=== PATIENT | male | born 1965 | race Caucasian/White ===

== ENCOUNTER 2017-08-11 23:57 | Inpatient (IN) | payer OTHER ==
[~2017-08-11] VITALS: Ht 185.4 cm; Wt 85.9 kg
[2017-08-12] MEDS ORDERED: VANCOMYCIN HCL 1 GM in NS 250ML 250 ML IV STA (00:10)
[2017-08-12] MEDS ORDERED: VANCOMYCIN HCL 1 GM ONE (00:32)
[2017-08-12] MEDS ORDERED: NS 250ML 250 ML IV ONE (00:32)
--- NOTE | 2017-08-12 00:33 | NUR ---
BLOOD CULTURES DRAWN X2 PER [facility] IN LAB
[2017-08-12 00:34] LABS: BASOPHIL % 0.2 % (0.0-0.2); EOSINOPHIL % 0.3 % (0.0-5.0); HEMOGLOBIN 14.5 g/dL (13.9-16.3); LYMPHOCYTES # 0.9 10^3/uL (1.0-4.8); LYMPHOCYTES % 7.3 % (24.0-44.0); MEAN CELL HGB 30.9 pg (26-34); MEAN CELL HGB CONCENTRATION 34.2 g/dL (33-37); MEAN CORP VOLUME 90.2 fL (78-100); MEAN PLATELET VOLUME 8.2 fL (7.8-11.0); MONOCYTES # 0.8 10^3/uL (0.3-0.8); MONOCYTES % 6.9 % (5.0-12.0); RED CELL DISTRIBUTION WIDTH 13.5 % (11.5-14.5); WHITE BLOOD CELL 11.8 10^3/uL (4.5-11.0)
[2017-08-12 01:00] VITALS: BP 136/90
[2017-08-12 01:06] LABS: CALCIUM 8.9 mg/dL (8.4-10.5); CARBON DIOXIDE 27.3 mmol/L (20.0-32)
--- NOTE | 2017-08-12 01:22 | DIREP ---
PROCEDURE:CT MAXILLOFACIAL W/CONTRAST COMPARISON:[facility], CT, CT HEAD BRAIN W/O CONTRAST, 08/01/2016, 02:49 PM. INDICATIONS:Facial swelling TECHNIQUE:Axial CT images were created without intravenous contrast. Sagittal and coronal reformatted images are provided. FINDINGS: ORBITS:Normal. FACIAL BONES:Normal. NASAL BONES :Normal. MANDIBLE:Normal. SINUSES:Mucous retention cysts present in the right maxillary sinus. Other sinuses appear clear. SOFT TISSUES:There is swelling of the left infraorbital subcutaneous tissue. No abnormal fluid collections are present. CONCLUSION: 1. Findings consistent with left facial cellulitis. 2. Right maxillary sinus mucous retention cysts. Dictated by: Mo Plummer M.D. on 08/12/2017 at 01:14 AM
--- NOTE | 2017-08-12 01:27 | ER.PDOC ---
General Chief Complaint: Fever Stated Complaint: FEVER Time seen by MD: 01:25 Source: patient Exam Limitations: no limitations History of Present Illness Initial Comments Fever and facial redness for 2 days Severity: moderate Location: facial Quality: painful Allergies: Coded Allergies: No Known Allergies (Unverified , 10/11/14) Home Meds No Active Prescriptions or Reported Meds Past Medical History Medical History: hypertension Surgical History: no surgical history Social History Smoking: cigarettes, less than 1 pack/day Alcohol Use: none Drug Use: marijuana Constitutional: see HPI EENTM: no symptoms reported Respiratory: no symptoms reported Cardiovascular: no symptoms reported Gastrointestinal: no symptoms reported Musculoskeletal: no symptoms reported Skin: see HPI All Other Systems: Reviewed and Negative Physical Exam General Appearance: alert, no distress Skin: with erythema Location: face Character: erythematous With: warmth, tenderness, swelling, inflammation Extremities: non-tender, nml ROM, no edema Neck: trachea midline, no swelling Respiratory: no resp. distress, breath sounds nml CVS: reg. rate & rhythm, heart sounds nml Abdomen: non-tender, no organomegaly NEURO/PSYCH: oriented x 3, CN's nml as tested, motor nml, sensation nml, mood/ affect nml Results/Orders Results/Orders Laboratory Tests Test 08/12/17 00:23 White Blood Count 11.8 10^3/uL (4.5-11.0) Red Blood Count 4.70 10^6/uL (4.50-5.90) Hemoglobin 14.5 g/dL (13.9-16.3) Hematocrit 42.4 % (37.0-53.0) Mean Corpuscular Volume 90.2 fL (78-100) Mean Corpuscular Hemoglobin 30.9 pg (26-34) Mean Corpuscular Hemoglobin Concent 34.2 g/dL (33-37) Red Cell Distribution Width 13.5 % (11.5-14.5) Platelet Count 276 10^3/uL (150-400) Mean Platelet Volume 8.2 fL (7.8-11.0) Neutrophils (%) (Auto) 85.0 % (41.0-85.0) Lymphocytes (%) (Auto) 7.3 % (24.0-44.0) Monocytes (%) (Auto) 6.9 % (5.0-12.0) Neutrophils # (Auto) 10.0 10^3/uL (1.8-7.7) Lymphocytes # (Auto) 0.9 10^3/uL (1.0-4.8) Monocytes # (Auto) 0.8 10^3/uL (0.3-0.8) Absolute Immature Granulocyte (auto 0.04 10^3 u/L (0-2) Eosinophils % 0.3 % (0.0-5.0) Basophils % 0.2 % (0.0-0.2) Basophils # 0.0 10^3/uL (0.0-0.1) Eosinophil Count 0.0 10^3/uL (0.0-0.2) Prothrombin Time 10.0 SEC (9.8-11.9) Prothrombin Time INR (Non-Therap) 1.0 Activated Partial Thromboplast Time 23.9 SEC (24.67-30.72) Sodium Level 135 mmol/L (132-145) Potassium Level 3.9 mmol/L (3.6-5.2) Chloride Level 97.0 mmol/L (96-109) Carbon Dioxide Level 27.3 mmol/L (20.0-32) Anion Gap 14.6 Blood Urea Nitrogen 17 mg/dL (7-18) Creatinine 1.14 mg/dL (0.59-1.40) Estimated GFR () 81.6 (>/=60) BUN/Creatinine Ratio 14.0 Glucose Level 115 mg/dL (70-110) Calcium Level 8.9 mg/dL (8.4-10.5) Total Bilirubin 0.5 mg/dL (0.2-1.0) Aspartate Amino Transf (AST/SGOT) 32 U/L (0-35) Alanine Aminotransferase (ALT/SGPT) 92 U/L (12-78) Alkaline Phosphatase 71 U/L (50-136) C-Reactive Protein 2.46 mg/dL (0.00-5.00) Total Protein 8.1 g/dL (6.4-8.2) Albumin 3.6 g/dL (3.4-5.0) Globulin 4.5 Percent Immature Gran (Cell Imm) 0.30 % (0.00-0.50) Administered Medications Medications (Trade) Dose Ordered Sig/Jillian Route PRN Reason Start Time Stop Time Status Last Admin Dose Admin Vancomycin HCl 1 gm/Sodium Chloride 250 ml @ 175 mls/hr STAT STAT IV 08/12/17 00:10 08/12/17 01:35 08/12/17 00:47 EKG/XRAY/CT/US CT Comments: Facial cellulitis Departure Time of Disposition: 01:31 Disposition: 09 ADMITTED INPATIENT Impression: Primary Impression: Facial cellulitis Condition: Stable Referrals: PCP,UNKNOWN (PCP) PRIMARY CARE PROVIDER Scripts No Active Prescriptions or Reported Meds Comments Admitted to Dr. Mares Duration or Time Spent with Pa: 90 mins MARISELA,PILI Rousseau MD Aug 12, 2017 01:26
--- NOTE | 2017-08-12 01:35 | PRM.ACF1 ---
Date and Time Date and Time Time: Admission Criteria Forms CELLULITIS Clinical Indications for Admission to Inpatient Care ([facility]/ check or initial the applicable condition/criteria) Admission is indicated for ANY ONE of the following(1)(2)(3)(4)(5): [ ]I. Limb-threatening infection [ ]II. High-risk comorbid condition as indicated by ANY ONE of the following: [ ]a) Uncontrolled diabetes (eg, HbA1c greater than 10% (0.1)) [ ]b) Cirrhosis [ ]c) Neutropenia [ ]d) Asplenia(12) [ ]e) Immunosuppression [ ]f) Symptomatic heart failure [ ]III. Failure of outpatient therapy as indicated by ALL of the following(6): [ ]a) Progression or no improvement after adequate trial (minimum of 48 hours, with longer period for stable lower extremity infection) [x ]b) Adequate antibiotic regimen as indicated by use of ANY ONE of the following: [ ]i) First-generation cephalosporin (e.g., cephalexin) [ ]ii) Antistaphylococcal penicillin (e.g., dicloxacillin) [ ]iii) Penicillin-allergic patient regimen (clindamycin, extended- spectrum fluoroquinolone, or doxycycline) [ ]iv) Resistant organism (eg, methicillin-resistant Staphylococcus aureus) regimen (7)(8) [ ]c) Outpatient intravenous therapy regimen is not appropriate due to ANY ONE of the following. (9)(10) [ ]i) It was tried and was not successful (eg, progression of infection). [ ]ii) It is not available or cannot be arranged in a clinically appropriate time frame (e.g., the next day). [ ]iii) Clinical presentation (eg, acuity of infection, rapidity of progression, confirmed or suspected bacteremia) is judged to require ALL of the following: [ ]a. Immediate initiation of intravenous therapy ( eg, cannot wait for next day) [ ]b. Intensity of patient monitoring and observation (eg, vital sign measurement, checks for infection progression) that cannot be provided at other than inpatient level of care [ ]IV. Altered mental status indicated by 1 or more of the following(1)(2)(3)( 4): [ ]a. Confusional state (eg,disorientation,difficulty following commands, deficit in attention) [ ]b. Lethargy (awake or arousal,but with drowsiness;reduced awareness of self and environment) [ ]c. Obtundation(ie,arousal with strong stimuli,lessened interesting environment, slowed responses to stimulation) [ ]d. Stupor (may be arousal but patient does not return to normal baseline level of awareness) [ ]e. Coma (not arousal) [ ]V. Bacteremia [ ]. Hemodynamic instability indicated by 1 or more of the following(1)(2)(3 )(4)(5)(6)(7): [ ]a. Vital sign abnormality not readily corrected by appropriate treatment within 12 to 24 hours indicated by 1 or more of the following: [ ]i. Tachycardia as indicated by 1 or more of the following(1)(2): [ ]1. Heart rate greater than 100 beats per minute in adult or child age 6 years or older [ ]2. Heart rate greater than 115 beats per minute in child 3 to 5 years of age [ ]3. Heart rate greater than 125 beats per minute in child 1 or 2 years of age [ ]4. Heart rate greater than 130 beats per minute in 6 to 11 months of age [ ]5. Heart rate greater than 150 beats per minute in 3 to 5 months of age [ ]6. Heart rate greater than 160 beats per minute in 1 or 2 months of age [ ]ii. Hypotension as indicated by ALL of the following (1)(2)(3)(4): [ ]A. Not patient baseline (eg, healthy adult with low SBP) or intentional therapeutic goal (eg, low SBP as treatment goal in heart failure) [ ]B. Low blood pressure as indicated by 1 or more of the following: [ ]1. New onset of SBP less than 90 mm Hg in adult or child 10 years or older [ ]2. New decrease in SBP greater than 40 mm Hg in adult or child 10 years or older [ ]3. Mean arterial pressure[A] less than 70 mm Hg in adult or child 10 years or older [ ]4. New onset of SBP less than sum of 70 mm Hg plus twice patient's age in years in child 1 to 9 years of age [ ]5. New onset of SBP less than 70 mm Hg in 1 to 11 months of age [ ]iii. Orthostatic vital sign changes as indicated by 1 or more of the following (1): [ ]A. Fall in SBP of 20 mm Hg or more 1 to 3 minutes after patient sits or stands from recumbent position [ ]B. Fall in DBP of 10 mm Hg or more 1 to 3 minutes after patient sits or stands from recumbent position [ ]b. Vital sign abnormality that is severe indicated by 1 or more of the following: [ ]i. Inadequate perfusion as indicated by 1 or more of the following: [ ]A. Lactic acidosis, with lactic acid greater than 18 mg/dL (2 mmol/L) or base excess < -5mEq/L [ ]B. New abnormal capillary refill (longer than 3 seconds) [ ]C. Other metabolic acidosis (arterial pH < 7.35)not otherwise explained [ ]D. Myocardial ischemia [ ]E Altered mental status indicated by 1 or more of the following(1)(2)(3)(4): [ ]1. Confusional state (eg,disorientation,difficulty following commands,deficit in attention) [ ]2. Lethargy (awake or arousal,but with drowsiness; reduced awareness of self and environment) [ ]3. Obtundation(ie,arousal with strong stimuli,lessened interesting environment, slowed responses to stimulation) [ ]4. Stupor (may be arousal but patient does not return to normal baseline level of awareness) [ ]5. Coma (not arousal) [ ]F. Reduced urine output as indicated by 1 or more of the following(1)(2): [ ] 1. 1. Urine output less than 0.5 mL/kg/hour for 6 hours in adult [ ] 2. Anuria (urine output less than 0.1 mL/kg/hour) for 4 hours in any age group [ ]3. Reduced output in child as indicated by 1 or more of the following (3): [ ]i. Urine output less than 2 mL/kg/hour for 6 hours in infant younger than 2 years [ ]ii. Urine output less than 1 mL/kg/hour for 6 hours in child younger than 12 years [ ]iii. Urine output less than 0.75 mL/kg/h [ ]ii. Mean arterial pressure[A] less than 60 mm Hg [ ]iii. Mean arterial pressure[A] less than 70 mm Hg after 30 minutes of appropriate treatment (eg, fluid resuscitation) [ ]iv. IV inotropic or vasopressor medication required to maintain adequate blood pressure or perfusion [ ]v. Sustained heart rate greater than 120 beats per minute in adult or child 6 years or older [ ]VII. Suspected necrotizing soft tissue infection (e.g., gas in tissue)(13)( 14)(15) [ ]VIII. Orbital infection (16)(17) [ ]XI. Associated surgical procedure (e.g., abscess drainage, debridement) not amenable to outpatient, emergency department, or observation care [ ]X. Cutaneous gangrene(19) [ ]XII. High fever (temperature greater than 39.5 degrees C (103.1 degrees F) ( oral)) not responsive to outpatient, emergency department, or observation care therapy [ ]XIII. Core(rectal) temperature lower than 95 degress F(35degress C)(eg, through due to infection [ ]XIV. Inpatient admission required [A]rather than observation care (Also use Cellulitis: Observation Care as appropriate) because of ANY ONE of the following(22)(23): [ ]a) Periorbital or perineal infection that is severe or progressive [ ]b) Severe pain requiring acute inpatient management as indicated by 1 or more of the following(1)(2)(3): [ ]i. Continuous or frequent (eg, every 2 to 4 hours) parenteral analgesics required[A] [ ]ii. Necessity (ie, alternative approaches not effective) for analgesic regimen that can only be performed or initiated in inpatient setting [ ]c) IV fluid to replace significant ongoing (e.g., for over 24 hours) losses (greater than 3 L/m2 per day) [ ]d) Compartment syndrome monitoring (24) [ ]e) Strict or protective (eg, laminar flow) isolation) [ ]f) Urgent debridement or skin grafting [ ]g) Bone or joint debridement [ ]h) Immediate inpatient surgery [ ]i) Other condition, treatment, or monitoring requiring inpatient admission Extended stay beyond goal length of stay may be needed for(18)(36)(37)(38)(39)( 40)(41) [ ]I. Necrotizing soft tissue infection or fasciitis(13)(42) [ ]a. Early intervention with tissue fasciotomy or debridement,broad spectrum antibiotics and fluid resuscitation is required [ ]II. Gram-negative infection [ ]III. Methicillin-resistant Staphylococcal aureus (MRSA) infection(7)(43) [ ]IV. Peripheral venous insufficiency with cellulitis [ ]V. Extensive edema [ ]. Continued high fever or mental status change [ ]a. Anticipate broadened antibotic coverage, repeat cultures, and possible lumbar puncture [ ]VII. Sepsis or continued Hemodynamic instability [ ]a. Anticipate ICU care broadened antibotic coverage, repeat cultures, and possible lumbar puncture [ ]VIII. Bacteremia(43) [ ]IX. Active serious comorbid conditions ( eg, heart failure, renal insufficiency) The original [employer] content created by [employer] has been revised. The portions of the content which have been revised are identified through the use of italic text, and [facility] has neither reviewed nor approved the modified material. All other unmodified content is copyright [facility] [employer] Please see references footnoted in the original [facility] edition 2014 PILI ANTONIO MD Aug 12, 2017 01:35
[2017-08-12 01:37] VITALS: BP 134/68
--- NOTE | 2017-08-12 01:45 | NUR ---
HOME MEDICATIONS PATIENT TAKE MEDICATION FOR HTN BUT HASN'T TAKEN IN 2 WEEKS AND UNSURE OF NAME OR DOSE
[2017-08-12 02:00] VITALS: BP 124/67
[2017-08-12] MEDS ORDERED: NORCO 7.5MG PO PRN (02:00)
[2017-08-12] MEDS ORDERED: HNS 1000ML/KCL 20MEQ 1,000 ML IV ONE (02:00)
[2017-08-12] MEDS ORDERED: NS 100ML 100 ML IV ONE (02:25)
[2017-08-12] MEDS ORDERED: ZOSYN 3.375 GRAM VIAL IV ONE (02:26)
[2017-08-12] MEDS ORDERED: unknown BP med (04:07)
[2017-08-12] MEDS ORDERED: NS IV SCH (06:00)
[2017-08-12] MEDS ORDERED: ZOSYN IV SCH (06:00)
[2017-08-12 07:07] VITALS: BP 127/78
[2017-08-12] MEDS ORDERED: MOTRIN PO PRN (08:00)
[2017-08-12] MEDS ORDERED: ZESTRIL PO SCH (09:00)
[2017-08-12] MEDS ORDERED: AMOXIL PO SCH (09:00)
[2017-08-12] MEDS ORDERED: VANCOMYCIN HCL 1 GM in NS 250ML 250 ML IV SCH (09:00)
[2017-08-12] MEDS ORDERED: IBUP-1129 PO (09:54)
[2017-08-12] MEDS ORDERED: AMOX500C PO (09:54)
--- NOTE | 2017-08-12 09:57 | PRM.DC ---
Discharge Summary Date of Discharge: Aug 12, 2017 Reason for Visit: Facial redness Patient History: Alzheimer's disease History Present Illness: (1) Facial cellulitis Status: Acute ICD Code: L03.211 - Cellulitis of face SNOMED: [id number] Assessment & Plan: Oral antibiotics for seven days General: Alert, Oriented X3, Cooperative, No acute distress HEENT: PERRLA, EOMI Neck: Supple, No JVD Lungs: Clear to auscultation, Normal air movement Heart: Regular rate, Normal S1, Normal S2 Abdomen: Normal bowel sounds, Soft, No tenderness Extremities: No clubbing, No cyanosis, No edema Skin: No breakdown, No significant lesion, Other (Facial erythema) Neuro: Normal speech, Strength at 5/5 X4 ext, Cranial nerves 3-12 NL Psych/Mental Status: Mental status NL, Mood NL Results(Labs/Rad) Laboratory Tests Test 08/12/17 00:23 White Blood Count 11.8 10^3/uL Red Blood Count 4.70 10^6/uL Hemoglobin 14.5 g/dL Hematocrit 42.4 % Mean Corpuscular Volume 90.2 fL Mean Corpuscular Hemoglobin 30.9 pg Mean Corpuscular Hemoglobin Concent 34.2 g/dL Red Cell Distribution Width 13.5 % Platelet Count 276 10^3/uL Mean Platelet Volume 8.2 fL Neutrophils (%) (Auto) 85.0 % Lymphocytes (%) (Auto) 7.3 % Monocytes (%) (Auto) 6.9 % Neutrophils # (Auto) 10.0 10^3/uL Lymphocytes # (Auto) 0.9 10^3/uL Monocytes # (Auto) 0.8 10^3/uL Absolute Immature Granulocyte (auto 0.04 10^3 u/L Eosinophils % 0.3 % Basophils % 0.2 % Basophils # 0.0 10^3/uL Eosinophil Count 0.0 10^3/uL Prothrombin Time 10.0 SEC Prothrombin Time INR (Non-Therap) 1.0 Activated Partial Thromboplast Time 23.9 SEC Sodium Level 135 mmol/L Potassium Level 3.9 mmol/L Chloride Level 97.0 mmol/L Carbon Dioxide Level 27.3 mmol/L Anion Gap 14.6 Blood Urea Nitrogen 17 mg/dL Creatinine 1.14 mg/dL Estimated GFR () 81.6 BUN/Creatinine Ratio 14.0 Glucose Level 115 mg/dL Calcium Level 8.9 mg/dL Total Bilirubin 0.5 mg/dL Aspartate Amino Transf (AST/SGOT) 32 U/L Alanine Aminotransferase (ALT/SGPT) 92 U/L Alkaline Phosphatase 71 U/L C-Reactive Protein 2.46 mg/dL Total Protein 8.1 g/dL Albumin 3.6 g/dL Globulin 4.5 Percent Immature Gran (Cell Imm) 0.30 % Scheduled Amoxicillin (Amoxicillin), 500 MG PO BID Scheduled PRN Ibuprofen (Ibuprofen), 600 MG PO Q6HR PRN for PAIN Miscellaneous Medications [unknown BP med], (Reported) Sepsis Evaluation @ Discharge Course Blood Pressure Systolic: 127 Blood Pressure Diastolic: 78 Blood Pressure Mean: 94 Notes see dictated report Plan Discharge Date: Aug 12, 2017 Dicharge DX: 1. Facial cellulitis, 2. Tobacco abuse Discharge Disposition: Stable Plan Resume previous medications plus antibiotic and as needed pain medication Diet and activity as tolerated Follow up in clinic next week to monitor for resolution of infection Good oral hygiene Discharge plans discussed with patient, he does understand and concur with plans Time spent 25 minutes MEHRDAD SEAMAN MD Aug 12, 2017 09:57
[2017-08-12 10:23] VITALS: BP 127/78
[2017-08-12 10:24] VITALS: BP 127/78
--- NOTE | 2017-08-14 12:01 | HPH ---
ADMIT DATE: 08/12/2017 ADMISSION HISTORY AND PHYSICAL AND DISCHARGE SUMMARY CHIEF COMPLAINT: Fever. HISTORY OF PRESENT ILLNESS: The patient is a 51-year-old man with a past medical history significant for hypertension, and tobacco abuse who presented from the longterm with complaints of fever. The fever was low grade in nature. He has some redness in his face. No recent trauma. No known sick contacts. The redness has progressed over the last couple of days. He does smoke cigarettes, has a history of marijuana use. He was seen in the ER, started on IV antibiotics. At time of exam in the morning, he was without pain. He was able to tolerate diet well. He actually was afebrile. PAST MEDICAL HISTORY: Includes hypertension, tobacco abuse, marijuana use. PAST SURGICAL HISTORY: He denies any surgeries. ALLERGIES: NO KNOWN DRUG ALLERGIES. HOME MEDICATIONS LIST: He takes a blood pressure medication, but was not sure which one. SOCIAL HISTORY: [facility], does have a tobacco use history. Denies alcohol use. He has possible illicit drug use. FAMILY HISTORY: Negative for early coronary artery disease or diabetes. REVIEW OF SYSTEMS: CARDIAC: Denies chest pain, shortness of breath or dyspnea on exertion. PULMONARY: No cough, sputum production or pleuritic chest pain. GASTROINTESTINAL: No nausea, vomiting, diarrhea or constipation. All else negative in 10 point review of system except as in HPI. PHYSICAL EXAMINATION: VITAL SIGNS: Upon arrival to the ER, height is 185 cm, weight 85.9 kilograms. Temperature 98.6, pulse 91, respiratory rate 16, blood pressure 136/90 and O2 saturation 96% on room air. GENERAL: He is alert, in no acute distress at time of exam. HEENT: Pupils equal, round, reactive to light. Sclerae are anicteric. Oropharynx is clear. Mucous membranes are moist. Poor dentition. He does have some erythema on his face. Some of it appears chronic. NECK: Supple, no lymphadenopathy. CARDIOVASCULAR: At time of exam is regular rate and rhythm. LUNGS: Clear bilaterally. No wheezing. ABDOMEN: Soft. Bowel sounds are present, nontender to palpation. EXTREMITIES: No cyanosis, clubbing or significant edema. NEUROLOGIC: Grossly nonfocal. LABORATORY DATA: CBC: White count 11.8, hemoglobin 14.5 and platelets 276. Differential: 85% neutrophils, 7% lymphocytes, 7% monocytes. Sodium 135, potassium 3.9, chloride 97, CO2 27, BUN 17, creatinine 1.1, glucose is 115, calcium is 8.9, total bilirubin 0.5, AST 32, ALT is 92, alkaline phosphatase is 71, C-reactive protein 2.46, total protein 8.1 and albumin 3.6. IMAGING STUDIES: CT of the facial bones was performed, which shows some mild left facial cellulitis. ASSESSMENT AND PLAN: The patient is a 51-year-old man here with mild facial cellulitis with history of hypertension. 1. We will convert to oral antibiotics. 2. Continue his blood pressure medication. 3. P.r.n. pain medication as needed. 4. I had a discussion with the patient. This is a mild cellulitis, has not been attempted in outpatient management. He is afebrile. We will discharge to longterm with amoxicillin 500 mg b.i.d. for 7 days and ibuprofen as needed for pain. DISCHARGE ACTIVITY: As tolerated. DISCHARGE DIET: As tolerated. Discharge plans were discussed with the patient. He is his own decision maker. He does understand and concur with plans. Time spent on history and physical and discharge is 45 minutes on 08/12/2017. Santiago Mares MD DR: ANAI/anu JOB# [id number]
== END 2017-08-12 10:22 | disposition home or self-care (01) | DRG 383 ==
LOC: EEVIPCON 23:57 → ER 23:57 → MS 08-12 01:32 → EDPENDDISTM 08-12 10:25
PROVIDERS: ADMIT Internal Medicine; ATTEND Internal Medicine
DX: L03.211 Cellulitis of face (principal); G30.9 Alzheimer's disease, unspecified; F02.80 Dementia in other diseases classified elsewhere, unspecified severity, without behavioral disturbance, psychotic disturbance, mood disturbance, and anxiety; F12.90 Cannabis use, unspecified, uncomplicated; F17.210 Nicotine dependence, cigarettes, uncomplicated; I10 Essential (primary) hypertension
CPT/HCPCS: 36415; 70487; 80053; 85025; 85610; 85730; 86140; 87040; 96365; 99285; J2543; J7030; J7050; Q9965